=== PATIENT | male | born 1980 | race Native Hawaiian/Other Pacific Islander ===

== ENCOUNTER 2016-09-23 14:30 | Outpatient (CLI) | payer BC ==
[2016-09-23 14:53] LABS: PLATELET COUNT 260 K/uL (142-355)
[2016-09-23 15:21] LABS: POTASSIUM 4.6 mmol/L (3.6-5.2); SODIUM 130 mmol/L (136-145)
== END 2016-09-23 19:11 | disposition home or self-care (01) ==
LOC: LABW 14:30
PROVIDERS: Internal Medicine
DX: E29.1 Testicular hypofunction (principal); I10 Essential (primary) hypertension; J45.909 Unspecified asthma, uncomplicated; E78.00 Pure hypercholesterolemia, unspecified
CPT/HCPCS: 36415; 80053; 80061; 81000; 82542; 84403; 84443; 84550; 85027

== ENCOUNTER 2017-04-15 08:39 | Outpatient (CLI) | payer BC ==
[2017-04-15 10:13] LABS: PLATELET COUNT 256 K/uL (142-355)
[2017-04-15 11:09] LABS: POTASSIUM 4.6 mmol/L (3.6-5.2); SODIUM 137 mmol/L (136-145)
== END 2017-04-15 09:40 | disposition home or self-care (01) ==
LOC: LABW 08:39
PROVIDERS: Internal Medicine
DX: I10 Essential (primary) hypertension (principal); M10.9 Gout, unspecified; J32.8 Other chronic sinusitis
CPT/HCPCS: 36415; 80053; 80061; 81000; 82542; 84403; 84443; 84550; 85027

== ENCOUNTER 2017-04-22 10:45 | Outpatient (CLI) | payer BC | END 2017-04-22 19:18 | disposition home or self-care (01) | LOC: LAB 10:45 | DX: M10.9 Gout, unspecified (principal); I10 Essential (primary) hypertension; J32.9 Chronic sinusitis, unspecified | CPT/HCPCS: 36415; 82542 ==

== ENCOUNTER 2017-09-16 08:14 | Outpatient (CLI) | payer BC ==
[2017-09-16 08:53] LABS: PLATELET COUNT 235 K/uL (142-355)
[2017-09-16 09:01] LABS: POTASSIUM 4.1 mmol/L (3.6-5.2)
== END 2017-09-16 22:12 | disposition home or self-care (01) ==
LOC: LABW 08:14
PROVIDERS: Specialist
DX: G40.A01 Absence epileptic syndrome, not intractable, with status epilepticus (principal); Z79.899 Other long term (current) drug therapy; Z51.81 Encounter for therapeutic drug level monitoring; E29.1 Testicular hypofunction; G43.009 Migraine without aura, not intractable, without status migrainosus
CPT/HCPCS: 36415; 80053; 80061; 82542; 84402; 84403; 85027

== ENCOUNTER 2018-08-25 09:43 | Outpatient (CLI) | payer BC ==
[2018-08-25 10:27] LABS: PLATELET COUNT 233 K/uL (142-355)
[2018-08-25 10:46] LABS: POTASSIUM 4.7 mmol/L (3.6-5.2)
== END 2018-08-25 19:48 | disposition home or self-care (01) ==
LOC: LABW 09:43
PROVIDERS: Internal Medicine
DX: Z00.00 Encounter for general adult medical examination without abnormal findings (principal); Z12.5 Encounter for screening for malignant neoplasm of prostate; E29.1 Testicular hypofunction; M10.9 Gout, unspecified; G40.909 Epilepsy, unspecified, not intractable, without status epilepticus
CPT/HCPCS: 36415; 80053; 80061; 81000; 82542; 84153; 84402; 84403; 84439; 84443; 84550; 85027

== ENCOUNTER 2019-03-05 10:34 | Outpatient (CLI) | payer BC ==
[2019-03-05 10:51] LABS: PLATELET COUNT 267 K/uL (142-355)
== END 2019-03-05 19:57 | disposition home or self-care (01) ==
LOC: LABW 10:34
PROVIDERS: Internal Medicine
DX: I10 Essential (primary) hypertension (principal); M10.9 Gout, unspecified
CPT/HCPCS: 36415; 80061; 84550; 85027